=== PATIENT | male | born 1995 | race African-American/Black ===

== ENCOUNTER 2021-07-13 17:15 | Inpatient (IN) ==
[2021-07-13 17:23] VITALS: BMI 25.1
[2021-07-13] MEDS ORDERED: NS 1000 ML 1,000 ML IV ONE (17:40)
[2021-07-13] MEDS ORDERED: TORADOL 30 MG VIAL IVP ONE (17:47)
[2021-07-13] MEDS ORDERED: NS 1000 ML 1,000 ML ONE (17:49)
--- NOTE | 2021-07-13 17:50 | DR.EXTPAIN ---
HPI Time seen Time Seen by Provider: 07/13/21 17:31 PCP Primary Care Physician: None HPI Comment HPI Comment: Sudden onset of pain in the lt knee today after he left er for what sounds like gastroenteritis; unable to place weight on it and mom says he's had to have help getting around today; he's been eating very little due to n/v which is why he went [place] [facility] [place] here last night; no fever, chills, penile discharge or pain; wbc 31 initially then 28 upon dc; ua with blood and leukocytes and ct abd with non-obstructing stone; had similar episode in the past d/t what sounds like septic knee unable to keep meds which were given to him earlier down due to n/v Complaint/Symptoms Chief Complaint:: Pt states " the circulation in my leg got cut off and I need an antibiotic mimi" Pt was seen last night for n/v and states he has still been vomiting. He states he is vomiting " because of the circulation in my leg." He reports he has had the same problem with his leg in the past because he had chlamydia. COVID-19 Coronavirus risk:travel/contact w/high risk person: No Has patient experienced Coronavirus symptoms: No Source History Provided: Patient Mode of arrival Mode of Arrival: Ambulatory Timing Onset of Chief Complaint: 07/13/21 PMH PMH Past Medical History: No Past Surgical History: Yes Surgical History: No History Past Surgical History Comment: adenoidectomy Family History History of Family Medical Conditions: Yes Family Medical History: Hypertension Family Medical History Comment: cancer Social History Does patient currently use any type of tobacco product: No Have you used tobacco products in the last 12 months: No Type of Tobacco Use: None Does any household member use tobacco: No Alcohol Use: None Do you use any recreational Drugs:: No Lives With: Family Lives Where: Home Travel Risk Coronavirus risk:travel/contact w/high risk person: No Has patient experienced Coronavirus symptoms: No Infectious screening In the last 2 months have you had wt loss of >10#?: NO Have you had fever, night sweats or hemotysis?: No Have you traveled outside the country in the last 6 months?: No Isolation: Standard ROS Review of Systems Eyes: No Symptoms Reported ENTM: No Symptoms Reported Respiratoy: No Symptoms Reported Cardiovascular: No Symptoms Reported Genitourinary: No Symptoms Reported Neurological: No Symptoms Reported Integumentary: No Symptoms Reported Hematologic/Lymphatic: No Symptoms Reported Endocrine: No Symptoms Reported Psychiatric: No Symptoms Reported PE Vital Signs Vitals: Temperature 97.4 F Pulse Rate [Apical] 75 Pulse Rate 84 Respiratory Rate 18 Blood Pressure [Left Arm] 124/82 Blood Pressure 113/70 O2 Sat by Pulse Oximetry 100 General Limitations: No Limitations General Appearance: Alert and In No Apparent Distress Head Head Exam: Normal Inspection Eyes Eye exam: Normal Appearance ENT ENT Exam: Normal Exam Neck Neck Exam: Normal Inspection Chest Chest Inspection: Normal Inspection Respiratory Respiratory Exam: Normal Lung Sounds Bilat Cardiovascular Cardiovascular Exam: Regular Rate and Normal Rhythm Abdominal Exam Abdominal Exam: Normal Inspection, Normal Bowel Sounds and Soft Lower Extremities Knee Exam: Swelling, Erythema and Effusion (warm, very tender lt knee with minimal effusion medially) Lower Leg Exam: Tenderness (very tender warm calderon without redness, decreased rom) Back Back Exam: Normal Inspection Neurological Neurological Exam: Alert, Oriented X3 and CN II-XII Intact Psychiatric Psychiatric Exam: Normal Affect and Normal Mood COURSE Treatment Treatment: unable to keep po down; af with minimal effusion at best; admit with IV abx for empiric tx of septic jt, hydration Reevaluation 1st: Worsened (actively vomiting) Consultation Call Returned: 19:33 (d/w Dr Sue who accepts admission) ROR Labs Reviewed Laboratory Results Reviewed?: Yes Result Diagrams: 07/13/21 17:56 07/13/21 17:56 Laboratory: WBC 27.1 X10^3/uL (3.6-10.0) H 07/13/21 17:56 RBC 4.74 X10^6/uL (4.7-6.0) 07/13/21 17:56 Hgb 14.3 g/dL (13.5-18.0) 07/13/21 17:56 Hct 42.1 % (42.0-54.0) 07/13/21 17:56 MCV 88.9 fL (80.0-100.0) 07/13/21 17:56 MCH 30.2 pg (27.0-34.0) 07/13/21 17:56 MCHC 33.9 g/dL (33.0-35.0) 07/13/21 17:56 RDW 13.4 % (11.6-16.5) 07/13/21 17:56 Plt Count 143 X10^3/uL (150.0-450.0) L 07/13/21 17:56 Plt Count Comment Decreased (ADEQUATE) 07/13/21 17:56 MPV 8.4 fL (7.4-11.0) 07/13/21 17:56 Neut % (Auto) 87.4 % (42.0-75.0) H 07/13/21 17:56 Lymph % (Auto) 4.7 % (21.0-51.0) L 07/13/21 17:56 Maury % (Auto) 7.7 % (0.0-13.0) 07/13/21 17:56 Eos % (Auto) 0.1 % (0.9-2.9) L 07/13/21 17:56 Baso % (Auto) 0.1 % (0.2-1.0) L 07/13/21 17:56 Neut # (Auto) 23.7 x10^3/uL (2.2-4.8) H 07/13/21 17:56 Lymph # (Auto) 1.3 X10^3/uL (1.3-2.9) 07/13/21 17:56 Maury # (Auto) 2.1 x10^3/uL (0.3-0.8) H 07/13/21 17:56 Eos # (Auto) 0.0 x10^3/uL (0.0-0.2) 07/13/21 17:56 Baso # (Auto) 0.0 X10^3/uL (0.0-0.1) 07/13/21 17:56 Absolute Nucleated RBC 0.1 /100WBC 07/13/21 17:56 Total Counted 100 07/13/21 17:56 Neutrophils % (Manual) 75 % (39-76) 07/13/21 17:56 Band Neutrophils % 4 % (0-10) 07/13/21 17:56 Lymphocytes % (Manual) 9 % (13-43) L 07/13/21 17:56 Monocytes % (Manual) 12 % (4-9) H 07/13/21 17:56 Atypical Lymphocytes Rare 07/13/21 17:56 Plt Morphology Comment Normal (NORMAL) 07/13/21 17:56 RBC Morphology Normal (NORMAL) 07/13/21 17:56 ESR 41 MM/HOUR (0-15) H 07/13/21 17:56 Sodium 140 mmol/L (136-145) 07/13/21 17:56 Corrected Sodium TNP 07/13/21 17:56 Potassium 3.5 mmol/L (3.5-5.1) 07/13/21 17:56 Chloride 104 mmol/L (98-107) 07/13/21 17:56 Carbon Dioxide 28.9 mmol/L (21-32) 07/13/21 17:56 BUN 12 mg/dL (7-18) 07/13/21 17:56 Creatinine 0.89 mg/dL (0.70-1.30) 07/13/21 17:56 Est GFR (MDRD) Af Amer > 60 (>60) 07/13/21 17:56 Est GFR (MDRD) Non-Af > 60 (>60) 07/13/21 17:56 Glucose 88 mg/dL (65-99) 07/13/21 17:56 Calcium 8.7 mg/dL (8.5-10.1) 07/13/21 17:56 Corrected Calcium 9.5 mg/dL (8.5-10.1) 07/13/21 17:56 Total Bilirubin 0.40 mg/dL (0.2-1.0) 07/13/21 17:56 AST 22 Units/L (15-37) 07/13/21 17:56 ALT 22 Units/L (12-78) 07/13/21 17:56 Alkaline Phosphatase 77 Units/L (46-116) 07/13/21 17:56 Total Protein 7.1 g/dL (6.4-8.2) 07/13/21 17:56 Albumin 3.0 g/dL (3.4-5.0) L 07/13/21 17:56 Globulin 4.1 g/dL (2.5-4.5) 07/13/21 17:56 Albumin/Globulin Ratio 0.7 Ratio (1.1-2.1) L 07/13/21 17:56 SARS-CoV-2 (PCR) Negative (NEGATIVE) 07/13/21 19:50 Influenza Type A (PCR) Negative (NEGATIVE) 10/16/21 19:50 Influenza Type B (PCR) Negative (NEGATIVE) 07/13/21 19:50 RSV (PCR) Negative (NEGATIVE) 07/13/21 19:50 XRAY XRAY Interpreted by: Radiologist X-ray Results: lt knee xr: Small nonspecific effusion. No significant osseous abnormality. ct abd/pelvis: Right nephrolithiasis, nonobstructing. No acute abdominal or pelvic pathology. Opioid Opioid Risk Tool Age (Tommie box if 16-45): No History of Preadolescent Sexual Abuse: No Total: 0 Total Score Risk Category: Low Risk Copyright: Juan ARIZMENDI predicting aberrant behaviors Diagnosis Discharge Problem: Nausea and vomiting in adult patient, Gastroenteritis, Acute pain of left knee Septic arthritis of knee, left Qualifiers: Septic arthritis organism: due to unspecified organism Qualified Code(s): M00.9 - Pyogenic arthritis, unspecified Instructions Forms: Precautions for COVID19 [facility] Social Distancing
[2021-07-13] MEDS ORDERED: TORADOL 30 MG VIAL ONE (18:09)
[2021-07-13 18:21] LABS: BASOPHILS % (AUTO) 0.1 % (0.2-1.0); EOSINOPHILS % (AUTO) 0.1 % (0.9-2.9); HEMATOCRIT 42.1 % (42.0-54.0); HEMOGLOBIN 14.3 g/dL (13.5-18.0); LYMPHOCYTES # (AUTO) 1.3 X10^3/uL (1.3-2.9); LYMPHOCYTES % (AUTO) 4.7 % (21.0-51.0); MEAN CORPUSCULAR HEMOGLOBIN 30.2 pg (27.0-34.0); MEAN CORPUSCULAR HGB CONC 33.9 g/dL (33.0-35.0); MEAN CORPUSCULAR VOLUME 88.9 fL (80.0-100.0); MEAN PLATELET VOLUME 8.4 fL (7.4-11.0); MONOCYTES # (AUTO) 2.1 x10^3/uL (0.3-0.8); MONOCYTES % (AUTO) 7.7 % (0.0-13.0); NEUTROPHILS # (AUTO) 23.7 x10^3/uL (2.2-4.8); NEUTROPHILS % (AUTO) 87.4 % (42.0-75.0); PLATELET COUNT 143 X10^3/uL (150.0-450.0); RED BLOOD COUNT 4.74 X10^6/uL (4.7-6.0); RED CELL DISTRIBUTION WIDTH 13.4 % (11.6-16.5); WHITE BLOOD COUNT 27.1 X10^3/uL (3.6-10.0)
--- NOTE | 2021-07-13 18:22 | RAD ---
HISTORYSWOLLEN, RED AND PAINFUL LT KNEE, H/O SEPTIC ARTHRITIS Relevant Clinical InformationSTUDYLeft knee, two viewsCOMPARISONNoneFINDINGSThere is small joint effusion. Joint spaces are maintained. No acute cortical disruption or osteolysis identified.IMPRESSIONSmall nonspecific effusion. No significant osseous abnormality.Electronically signed by: ADRIAN NUÑEZ (Jul 13, 2021 18:20:24)
[2021-07-13 18:24] LABS: ERYTHROCYTE SEDIMENTATION RATE 41 MM/HOUR (0-15)
[2021-07-13 18:33] LABS: ALANINE AMINOTRANSFERASE 22 Units/L (12-78); ALKALINE PHOSPHATASE 77 Units/L (46-116); ASPARTATE AMINO TRANSFERASE 22 Units/L (15-37); BLOOD UREA NITROGEN 12 mg/dL (7-18); CALCIUM 8.7 mg/dL (8.5-10.1); CARBON DIOXIDE 28.9 mmol/L (21-32); CHLORIDE 104 mmol/L (98-107); COR CA(FOR HYPOALB) 9.5 mg/dL (8.5-10.1); CREATININE 0.89 mg/dL (0.70-1.30); SODIUM 140 mmol/L (136-145); TOTAL PROTEIN 7.1 g/dL (6.4-8.2); eGFR NON BLACK RACES > 60 (>60)
[2021-07-13] MEDS ORDERED: ZOFRAN INJ 4 MG VIAL IVP ONE (18:51)
[2021-07-13] MEDS ORDERED: MORPHINE SULFATE INJ 2 MG INJ IVP ONE (18:51)
[2021-07-13 18:53] LABS: BAND NEUTROPHILS % 4 % (0-10)
[2021-07-13 18:54] LABS: PLATELET MORPHOLOGY COMMENT NORMAL (NORMAL)
[2021-07-13] MEDS ORDERED: ROCEPHIN VIAL 1 GRAM 1 G in NS 100 ML IV + SPIKE MINIBAG* 100 ML IV ONE (18:58)
[2021-07-13] MEDS ORDERED: MORPHINE SULFATE INJ 2 MG INJ ONE (19:09)
[2021-07-13] MEDS ORDERED: NS 100 ML IV + SPIKE MINIBAG* 100 ML IV ONE (19:09)
[2021-07-13] MEDS ORDERED: ZOFRAN INJ 4 MG VIAL ONE (19:09)
[2021-07-13] MEDS ORDERED: ROCEPHIN VIAL 1 GRAM ONE (19:09)
[2021-07-13] MEDS ORDERED: ZITHROMAX INJ 500 MG VIAL 500 MG in NS 250 ML IV 250 ML IV SCH (19:27)
[2021-07-13] MEDS ORDERED: ZITHROMAX INJ 500 MG VIAL IV ONE (19:33)
[2021-07-13] MEDS ORDERED: NS 250 ML IV 250 ML IV ONE (19:33)
[2021-07-13] MEDS ORDERED: MORPHINE SULFATE INJ 2 MG INJ IVP PRN (20:35)
--- NOTE | 2021-07-13 20:54 | VAS ---
HISTORYLEFT KNEE PAIN R/O DVTSTUDYLOWER EXT VENOUS, UNILATERALCOMPARISONNo relevant prior studies available.TECHNIQUEGrayscale and color Doppler images of the left lower extremity.FINDINGSCommon femoral, femoral, popliteal and posterior tibial veins demonstrate normal compressibility, color Doppler flow, waveforms and augmentation with no filling defects.Soft tissues: UnremarkableIMPRESSIONNo evidence of deep venous thrombus.Electronically signed by: Brandan Salcido (Jul 13, 2021 20:52:11)
[2021-07-13] MEDS: NS 1000 ML 1,000 ML IV SCH (21:23)
[2021-07-13] MEDS ORDERED: TYLENOL 325 MG TAB PO PRN (21:24)
[2021-07-14] MEDS: AMBIEN PO PRN ×2 (00:34→20:13)
[2021-07-14] MEDS: ZOFRAN INJ 4 MG VIAL IVP PRN (03:21)
[2021-07-14] MEDS: NS 1000 ML 1,000 ML IV SCH ×4 (05:20→22:06)
[2021-07-14 06:21] LABS: ALANINE AMINOTRANSFERASE 44 Units/L (12-78); ALBUMIN 2.6 g/dL (3.4-5.0); ALKALINE PHOSPHATASE 91 Units/L (46-116); ASPARTATE AMINO TRANSFERASE 41 Units/L (15-37); BLOOD UREA NITROGEN 11 mg/dL (7-18); CALCIUM 8.5 mg/dL (8.5-10.1); CARBON DIOXIDE 26.6 mmol/L (21-32); CHLORIDE 106 mmol/L (98-107); COR CA(FOR HYPOALB) 9.6 mg/dL (8.5-10.1); SODIUM 142 mmol/L (136-145); TOTAL PROTEIN 6.5 g/dL (6.4-8.2); eGFR NON BLACK RACES > 60 (>60)
[2021-07-14 06:38] LABS: BASOPHILS % (AUTO) 0.3 % (0.2-1.0); EOSINOPHILS # (AUTO) 0.1 x10^3/uL (0.0-0.2); EOSINOPHILS % (AUTO) 0.4 % (0.9-2.9); HEMATOCRIT 40.3 % (42.0-54.0); HEMOGLOBIN 13.6 g/dL (13.5-18.0); LYMPHOCYTES # (AUTO) 2.1 X10^3/uL (1.3-2.9); LYMPHOCYTES % (AUTO) 11.2 % (21.0-51.0); MEAN CORPUSCULAR HEMOGLOBIN 29.9 pg (27.0-34.0); MEAN CORPUSCULAR HGB CONC 33.7 g/dL (33.0-35.0); MEAN CORPUSCULAR VOLUME 88.7 fL (80.0-100.0); MEAN PLATELET VOLUME 8.5 fL (7.4-11.0); MONOCYTES # (AUTO) 1.9 x10^3/uL (0.3-0.8); NEUTROPHILS # (AUTO) 14.4 x10^3/uL (2.2-4.8); NEUTROPHILS % (AUTO) 78.1 % (42.0-75.0); PLATELET COUNT 145 X10^3/uL (150.0-450.0); RED BLOOD COUNT 4.55 X10^6/uL (4.7-6.0); RED CELL DISTRIBUTION WIDTH 13.3 % (11.6-16.5); WHITE BLOOD COUNT 18.5 X10^3/uL (3.6-10.0)
[2021-07-14] MEDS ORDERED: POTASSIUM CHLORIDE LIQ 20 MEQ UDC PO PRN (06:50)
[2021-07-14] MEDS ORDERED: POTASSIUM CHL 40 MEQ/NS 0.45% 500 ML IV PRN (06:50)
[2021-07-14] MEDS ORDERED: POTASSIUM CHL 60 MEQ/NS 0.45% 500 ML IV PRN (06:50)
[2021-07-14] MEDS ORDERED: K-RIDER 10 MEQ/NS 100 ML 10 MEQ/100 ML BAG IV PRN (06:50)
[2021-07-14] MEDS ORDERED: KLOR-CON PO PRN (06:50)
[2021-07-14] MEDS ORDERED: MICRO K EXTEN CAP 10 MEQ PO PRN (06:50)
[2021-07-14 07:20] LABS: BAND NEUTROPHILS % 7 % (0-10); PLATELET MORPHOLOGY COMMENT NORMAL (NORMAL)
[2021-07-14] MEDS ORDERED: MORPHINE SULFATE INJ 2 MG INJ IVP PRN (08:00)
[2021-07-14] MEDS ORDERED: PHENERGAN INJ 25 MG IM PRN (08:00)
[2021-07-14] MEDS ORDERED: ROCEPHIN VIAL 1 GRAM 1 G in NS 100 ML IV + SPIKE MINIBAG* 100 ML IV SCH (09:00)
[2021-07-14] MEDS: K-DUR TAB 20 MEQ PO PRN (09:17)
[2021-07-14] MEDS: ZITHROMAX INJ 500 MG VIAL 500 MG in NS 250 ML IV 250 ML IV SCH (10:49)
--- NOTE | 2021-07-14 11:00 | DR.H&P ---
H&P - History & Physical for Day of: H&P Date: 07/13/21 - Chief Complaint Chief Complaint: severe left knee pain, recent N/V, dehdyration - History of Present Illness History of Present Illness: Pt is 25 M, ER admission with co sudden onset of pain in the lt knee today after he left er for what sounds like gastroenteritis; unable to place weight on it and mom says he's had to have help getting around today; he's been eating very little due to n/v which is why he went to [place] [facility] [place] here last night; no fever, chills, penile discharge or pain; wbc 31 initially then 28 upon dc; ua with blood and leukocytes and ct abd with non-obst ructing stone; had similar episode in the past d/t what sounds like septic knee. Pt denies any PMH of DM, CAD,HTN. unable to keep meds which were given to him earlier down due to n/v - Past Medical History Past Medical History: denies: Coronary Artery Disease, Diabetes, Hypertension - Past Surgical History Surgical History: No History - Family History Family Medical History: Diabetes Mellitus, Cancer - Social History Does patient currently use any type of tobacco product: No Have you used tobacco products in the last 12 months: No Type of Tobacco Use: None Does any household member use tobacco: No Alcohol Use: None Drug Use: Prescription Drugs - Medications Home Medications: No Known Drug Allergies Allergy (Verified 07/12/21 20:48) CONTINUE taking the following medications metoclopramide HCl [Reglan] 10 mg PO Q6H PRN 07/13/21 [History] pantoprazole [Protonix] 40 mg PO QAM 07/13/21 [History] - Review of Systems Constitutional: Weakness Eyes: No Symptoms Reported ENT: No Symptoms Reported Respiratory: No Symptoms Reported Cardiovascular: No Symptoms Reported Gastrointestinal: Nausea, Vomiting Genitourinary: No Symptoms Reported Musculoskeletal: Leg Pain Skin: No Symptoms Reported Neurological: No Symptoms Reported - Physical Exam Vital Signs: Temperature 98.3 F Pulse Rate [Apical] 73 Pulse Rate 84 Respiratory Rate 18 Blood Pressure [Left Arm] 149/69 Blood Pressure 113/70 O2 Sat by Pulse Oximetry 98 Oriented: Normal Eyes: Normal Ear: Normal Nose: Normal Throat: Normal Respiratory: RLL Diminished, LLL Diminished Cardiovascular: Normal : Normal Auscultation: Bowel Sounds: Increased Tenderness: Epigastric, Mild Skin: Normal Musculoskeletal: Left, Knee, Swelling, Tender Psychiatric: Anxiety Affect: Anxious Speech Pattern: Clear, Appropriate - Assessment/Plan (1) Septic arthritis of knee, left Qualifiers: Septic arthritis organism: due to unspecified organism Qualified Code(s): M00.9 - Pyogenic arthritis, unspecified Status: Acute Plan: admit, blood cultures on admission. knee xray in er, IV hydration. strict I&Os, pain control. IV ATBX, verify home medications (2) Gastroenteritis Status: Acute - Allergies Allergies/Adverse Reactions: Allergies Allergy/AdvReac Type Severity Reaction Status Date / Time No Known Drug Allergies Allergy Verified 07/12/21 20:48
[2021-07-14 11:12] LABS: URIC ACID 3.8 mg/dL (3.5-7.2)
[2021-07-14] MEDS: TORADOL 15 MG VIAL IVP PRN (15:01)
[2021-07-14] MEDS ORDERED: VANCOMYCIN IV *PREMIX 1 G/200 ML BAG 1 G/200 ML PIGGYBACK IV ONE (15:14)
[2021-07-14] MEDS: VANCOMYCIN IV *PREMIX 1 G/200 ML BAG 1 G/200 ML PIGGYBACK IV SCH ×3 (15:24→23:33)
[2021-07-14] MEDS ORDERED: MILK OF MAGNESIA ONE (19:51)
[2021-07-14] MEDS: NORCO 7.5/325 MG TAB PO PRN (20:12)
[2021-07-14] MEDS: MILK OF MAGNESIA PO SCH (20:13)
[2021-07-15] MEDS: TORADOL 15 MG VIAL IVP PRN ×2 (02:45→10:14)
[2021-07-15] MEDS: NS 1000 ML 1,000 ML IV SCH ×4 (05:35→22:54)
[2021-07-15 06:16] LABS: BASOPHILS % (AUTO) 0.4 % (0.2-1.0); EOSINOPHILS # (AUTO) 0.1 x10^3/uL (0.0-0.2); EOSINOPHILS % (AUTO) 1.1 % (0.9-2.9); HEMATOCRIT 38.7 % (42.0-54.0); HEMOGLOBIN 13.2 g/dL (13.5-18.0); LYMPHOCYTES # (AUTO) 2.4 X10^3/uL (1.3-2.9); LYMPHOCYTES % (AUTO) 20.3 % (21.0-51.0); MEAN CORPUSCULAR HEMOGLOBIN 30.5 pg (27.0-34.0); MEAN CORPUSCULAR HGB CONC 34.2 g/dL (33.0-35.0); MEAN CORPUSCULAR VOLUME 89.2 fL (80.0-100.0); MEAN PLATELET VOLUME 8.3 fL (7.4-11.0); MONOCYTES # (AUTO) 2.5 x10^3/uL (0.3-0.8); MONOCYTES % (AUTO) 20.7 % (0.0-13.0); NEUTROPHILS # (AUTO) 6.9 x10^3/uL (2.2-4.8); NEUTROPHILS % (AUTO) 57.5 % (42.0-75.0); PLATELET COUNT 174 X10^3/uL (150.0-450.0); RED BLOOD COUNT 4.34 X10^6/uL (4.7-6.0); RED CELL DISTRIBUTION WIDTH 13.6 % (11.6-16.5); WHITE BLOOD COUNT 12.1 X10^3/uL (3.6-10.0)
[2021-07-15 06:32] LABS: ALANINE AMINOTRANSFERASE 113 Units/L (12-78); ALBUMIN 2.5 g/dL (3.4-5.0); ALKALINE PHOSPHATASE 106 Units/L (46-116); ASPARTATE AMINO TRANSFERASE 85 Units/L (15-37); BLOOD UREA NITROGEN 9 mg/dL (7-18); CALCIUM 8.7 mg/dL (8.5-10.1); CARBON DIOXIDE 25.2 mmol/L (21-32); CHLORIDE 108 mmol/L (98-107); COR CA(FOR HYPOALB) 9.9 mg/dL (8.5-10.1); CREATININE 0.84 mg/dL (0.70-1.30); SODIUM 144 mmol/L (136-145); TOTAL PROTEIN 6.3 g/dL (6.4-8.2); eGFR NON BLACK RACES > 60 (>60)
[2021-07-15 06:36] LABS: ERYTHROCYTE SEDIMENTATION RATE 52 MM/HOUR (0-15)
[2021-07-15 07:02] LABS: BAND NEUTROPHILS % 3 % (0-10); PLATELET MORPHOLOGY COMMENT NORMAL (NORMAL)
[2021-07-15] MEDS: VANCOMYCIN IV *PREMIX 1 G/200 ML BAG 1 G/200 ML PIGGYBACK IV SCH ×3 (07:52→22:52)
[2021-07-15] MEDS: ZITHROMAX INJ 500 MG VIAL 500 MG in NS 250 ML IV 250 ML IV SCH (09:27)
[2021-07-15] MEDS ORDERED: XYLOCAINE 1 % (PLAIN) ONE (09:43)
[2021-07-15] MEDS: PHARMACY COMMENT IV SCH ×2 (14:34→14:35)
[2021-07-15] MEDS: NORCO 7.5/325 MG TAB PO PRN ×2 (14:35→20:17)
[2021-07-15 15:04] LABS: CREATININE 0.84 mg/dL (0.70-1.30); VANCOMYCIN,TROUGH 11.6 ug/mL (15-20)
[2021-07-15] MEDS ORDERED: LR 1000 ML IV 1,000 ML IV ONE (15:21)
[2021-07-15] MEDS ORDERED: FENTANYL VIAL INJ 100 mcg ONE (15:43)
[2021-07-15] MEDS ORDERED: VERSED ONE (15:45)
[2021-07-15] MEDS ORDERED: DIPRIVAN VIAL ONE (15:45)
[2021-07-15] MEDS ORDERED: ZOFRAN INJ 4 MG VIAL ONE (15:45)
[2021-07-15] MEDS ORDERED: SUPRANE ONE (15:45)
[2021-07-15] MEDS ORDERED: ROBINUL ONE (15:45)
[2021-07-15] MEDS ORDERED: BARHEMSYS INJ IVP PRN (16:44)
[2021-07-15] MEDS ORDERED: DILAUDID INJ IVP PRN (16:44)
[2021-07-15] MEDS ORDERED: BENADRYL INJ 50 MG VIAL IVP PRN (16:44)
[2021-07-15] MEDS ORDERED: REGLAN INJ 10 MG VIAL IVP PRN (16:44)
[2021-07-15] MEDS ORDERED: ZOFRAN INJ 4 MG VIAL IVP PRN (16:44)
[2021-07-15] MEDS ORDERED: PHENERGAN INJ 25 MG IM PRN (16:44)
--- NOTE | 2021-07-15 17:34 | DR.CONSULT ---
CONSULT Consultation for Day of: Date: 07/15/21 Allergies Allergies Allergy/AdvReac Type Severity Reaction Status Date / Time No Known Drug Allergies Allergy Verified 07/12/21 20:48 Past Medical History Past Medical History: Past Surgical History Surgical History: No History Family History Family Medical History: Diabetes Mellitus and Cancer Social History Does patient currently use any type of tobacco product: No Have you used tobacco products in the last 12 months: No Type of Tobacco Use: None Does any household member use tobacco: No Alcohol Use: None Drug Use: Prescription Drugs Medications Home Medications: No Known Drug Allergies Allergy (Verified 07/12/21 20:48) CONTINUE taking the following medications metoclopramide HCl [Reglan] 10 mg PO Q6H PRN 07/13/21 [History] pantoprazole [Protonix] 40 mg PO QAM 07/13/21 [History] Physical Exam Vital Signs: Temperature 97.0 F Pulse Rate [Apical] 74 Pulse Rate 75 Respiratory Rate 18 Blood Pressure [Left Arm] 128/73 Blood Pressure 130/70 O2 Sat by Pulse Oximetry 95 Left knee is swollen, erythematous, warm to touch and painful to move. Palpable effusion is present Exam is guarded due to pain. Sensation is intact. The patient is able to wiggle toes and resist dorsiflexion and plantar flexion bilaterally. Plan (1) Septic arthritis of knee, left: Status: Acute Qualifiers: Septic arthritis organism: due to unspecified organism Qualified Code(s): M00.9 - Pyogenic arthritis, unspecified Narrative Support Text: Patient reports that he has had one prior episode of left knee swelling but nothing as bad as presently. He states that there was no traumatic injury that caused his left knee pain. Per the chart, he was previously being treated for gastroenteritis. His mother was present with for the procedure. We discussed various treatment options including not aspirating the knee. We discussed the risk of not treating a possible septic arthritis. All questions were answered and patient wished to pursue left knee aspiration. After consent was obtained, the left knee was aspirated using an 18g 3.5 in needle under ultrasound guidance. The patient tolerated the procedure well. 58ml of cloudy purulent material was removed off the left knee. There were no immediate post-procedural complications. The patient is to have a washout of the left knee pending laboratory results and Dr. Camacho. Dr. Camacho to perform. (2) Gastroenteritis: Status: Acute
[2021-07-15] MEDS ORDERED: K-DUR TAB 20 MEQ PO PRN (19:04)
[2021-07-15] MEDS ORDERED: KLOR-CON PO PRN (19:04)
[2021-07-15] MEDS ORDERED: K-RIDER 10 MEQ/NS 100 ML 10 MEQ/100 ML BAG IV PRN (19:04)
[2021-07-15] MEDS ORDERED: POTASSIUM CHLORIDE LIQ 20 MEQ UDC PO PRN (19:04)
[2021-07-15] MEDS: ZOFRAN INJ 4 MG VIAL IVP PRN (20:17)
[2021-07-15] MEDS: K-DUR TAB 20 MEQ PO PRN (20:18)
[2021-07-15] MEDS: AMBIEN PO PRN (20:18)
[2021-07-15] MEDS: MILK OF MAGNESIA PO SCH (20:19)
[2021-07-16] MEDS: NS 1000 ML 1,000 ML IV SCH ×4 (00:56→21:38)
[2021-07-16] MEDS: NORCO 7.5/325 MG TAB PO PRN ×3 (02:21→20:33)
[2021-07-16 05:10] LABS: BASOPHILS # (AUTO) 0.1 X10^3/uL (0.0-0.1); BASOPHILS % (AUTO) 0.8 % (0.2-1.0); EOSINOPHILS # (AUTO) 0.2 x10^3/uL (0.0-0.2); EOSINOPHILS % (AUTO) 1.8 % (0.9-2.9); HEMATOCRIT 37.7 % (42.0-54.0); HEMOGLOBIN 12.9 g/dL (13.5-18.0); LYMPHOCYTES # (AUTO) 2.4 X10^3/uL (1.3-2.9); MEAN CORPUSCULAR HEMOGLOBIN 30.1 pg (27.0-34.0); MEAN CORPUSCULAR HGB CONC 34.2 g/dL (33.0-35.0); MEAN CORPUSCULAR VOLUME 88.2 fL (80.0-100.0); MEAN PLATELET VOLUME 8.1 fL (7.4-11.0); MONOCYTES # (AUTO) 2.7 x10^3/uL (0.3-0.8); MONOCYTES % (AUTO) 24.2 % (0.0-13.0); NEUTROPHILS # (AUTO) 5.7 x10^3/uL (2.2-4.8); NEUTROPHILS % (AUTO) 51.2 % (42.0-75.0); PLATELET COUNT 195 X10^3/uL (150.0-450.0); RED BLOOD COUNT 4.28 X10^6/uL (4.7-6.0); RED CELL DISTRIBUTION WIDTH 13.3 % (11.6-16.5); WHITE BLOOD COUNT 11.1 X10^3/uL (3.6-10.0)
[2021-07-16 05:34] LABS: ALANINE AMINOTRANSFERASE 79 Units/L (12-78); ALBUMIN 2.5 g/dL (3.4-5.0); ALKALINE PHOSPHATASE 85 Units/L (46-116); ASPARTATE AMINO TRANSFERASE 31 Units/L (15-37); BLOOD UREA NITROGEN 8 mg/dL (7-18); CALCIUM 8.4 mg/dL (8.5-10.1); CARBON DIOXIDE 25.7 mmol/L (21-32); CHLORIDE 105 mmol/L (98-107); COR CA(FOR HYPOALB) 9.6 mg/dL (8.5-10.1); CREATININE 0.79 mg/dL (0.70-1.30); MAGNESIUM 1.6 mg/dL (1.7-2.9); SODIUM 139 mmol/L (136-145); TOTAL PROTEIN 6.3 g/dL (6.4-8.2); eGFR NON BLACK RACES > 60 (>60)
[2021-07-16 05:38] LABS: PLATELET MORPHOLOGY COMMENT NORMAL (NORMAL)
[2021-07-16] MEDS: VANCOMYCIN IV *PREMIX 1 G/200 ML BAG 1 G/200 ML PIGGYBACK IV SCH ×3 (05:39→21:30)
[2021-07-16] MEDS: K-DUR TAB 20 MEQ PO PRN ×2 (06:16→16:16)
[2021-07-16] MEDS: MAGNESIUM SULFATE 1 GRAM/100 mL PREMIX 1 G/100 ML BAG IV PRN ×2 (07:05→08:18)
[2021-07-16] MEDS ORDERED: MORPHINE SULFATE INJ 4 MG IVP ONE (09:22)
[2021-07-16] MEDS: ZITHROMAX INJ 500 MG VIAL 500 MG in NS 250 ML IV 250 ML IV SCH (10:20)
[2021-07-16] MEDS ORDERED: REGLAN TAB 10 MG PO PRN (13:04)
[2021-07-16] MEDS ORDERED: ZOFRAN TAB 4 MG PO PRN (13:04)
[2021-07-16] MEDS: MORPHINE SULFATE INJ 2 MG INJ IVP PRN ×2 (16:16→18:20)
--- NOTE | 2021-07-16 20:17 | PCM.PROG ---
Progress Note - Progress Note for Day of Date of Exam: 07/15/21 - Subjective Subjective: PATIENT IS A 25 YEAR OLD AAM WHO WAS ADMITTED DUE TO GASTROENTERITIS AND SEPTIC KNEE (LEFT). PATIENT IS BEING FOLLOWING BY ORTHO WHO PLANS AN I&D TODAY. NO OTHER CONCERNS AT PRESENT. PATIENT CONTINUES TO REPORT PAIN TO KNEE. - Past Medical Family Social History Past Med/Fam/Surg Hx: No changes since H&P Allergies: Allergies No Known Drug Allergies Allergy (Verified 07/12/21 20:48) - Review of Systems ROS: No change since H&P - Vital Signs and I&O's Vital Signs: Temperature 97.8 F Pulse Rate [Apical] 79 Pulse Rate 75 Respiratory Rate 18 Blood Pressure [Left Arm] 133/81 Blood Pressure 130/70 O2 Sat by Pulse Oximetry 99 Intake and Output: Intake & Output 07/13/21 07/14/21 07/15/21 07/16/21 23:59 23:59 23:59 23:59 Intake Total 595 / 595 5954 / 5954 9216 / 9216 3471 / 3471 Output Total 400 / 400 6010 / 6010 500 / 500 Balance 595 / 595 5554 / 5554 3206 / 3206 2971 / 2971 - Physical Exam Oriented: Normal Eyes: Normal Ear: Normal Nose: Normal Throat: Normal Respiratory: Normal Cardiovascular: Normal : Normal Auscultation: Bowel Sounds: Normal Tenderness: Normal Skin: Normal Musculoskeletal: Left, Knee, Swelling, Tender Psychiatric: Normal Mood Description: Calm Affect: Normal Speech Pattern: Clear - Laboratory and Diagnostics Result Diagrams: 07/16/21 04:40 07/16/21 15:07 Labs: 07/15/21 16:10 Knee - Left Wound Gram Stain - Final 07/15/21 16:10 Knee - Left Wound Culture - Preliminary 07/15/21 09:58 Knee - Left - Preliminary 07/15/21 09:58 Knee - Left Gram Stain - Final 07/13/21 18:10 Blood Blood Culture - Preliminary 07/13/21 17:56 Blood Blood Culture - Preliminary Laboratory WBC 11.1 X10^3/uL (3.6-10.0) H 07/16/21 04:40 RBC 4.28 X10^6/uL (4.7-6.0) L 07/16/21 04:40 Hgb 12.9 g/dL (13.5-18.0) L 07/16/21 04:40 Hct 37.7 % (42.0-54.0) L 07/16/21 04:40 MCV 88.2 fL (80.0-100.0) 07/16/21 04:40 MCH 30.1 pg (27.0-34.0) 07/16/21 04:40 MCHC 34.2 g/dL (33.0-35.0) 07/16/21 04:40 RDW 13.3 % (11.6-16.5) 07/16/21 04:40 Plt Count 195 X10^3/uL (150.0-450.0) 07/16/21 04:40 Plt Count Comment Adequate (ADEQUATE) 07/16/21 04:40 MPV 8.1 fL (7.4-11.0) 07/16/21 04:40 Neut % (Auto) 51.2 % (42.0-75.0) 07/16/21 04:40 Lymph % (Auto) 22.0 % (21.0-51.0) 07/16/21 04:40 Sac % (Auto) 24.2 % (0.0-13.0) H 07/16/21 04:40 Eos % (Auto) 1.8 % (0.9-2.9) 07/16/21 04:40 Baso % (Auto) 0.8 % (0.2-1.0) 07/16/21 04:40 Neut # (Auto) 5.7 x10^3/uL (2.2-4.8) H 07/16/21 04:40 Lymph # (Auto) 2.4 X10^3/uL (1.3-2.9) 07/16/21 04:40 Sac # (Auto) 2.7 x10^3/uL (0.3-0.8) H 07/16/21 04:40 Eos # (Auto) 0.2 x10^3/uL (0.0-0.2) 07/16/21 04:40 Baso # (Auto) 0.1 X10^3/uL (0.0-0.1) 07/16/21 04:40 Absolute Nucleated RBC 0.0 /100WBC 07/16/21 04:40 Total Counted 100 07/16/21 04:40 Neutrophils % (Manual) 49 % (39-76) 07/16/21 04:40 Band Neutrophils % 3 % (0-10) 07/15/21 04:38 Lymphocytes % (Manual) 29 % (13-43) 07/16/21 04:40 Monocytes % (Manual) 21 % (4-9) H 07/16/21 04:40 Eosinophils % (Manual) 1 % (0-6) 07/16/21 04:40 Atypical Lymphocytes Few 07/15/21 04:38 Plt Morphology Comment Normal (NORMAL) 07/16/21 04:40 RBC Morphology Normal (NORMAL) 07/16/21 04:40 ESR 52 MM/HOUR (0-15) H 07/15/21 04:38 Sodium 139 mmol/L (136-145) 07/16/21 04:40 Corrected Sodium TNP 07/16/21 04:40 Potassium 3.8 mmol/L (3.5-5.1) 07/16/21 15:07 Chloride 105 mmol/L (98-107) 07/16/21 04:40 Carbon Dioxide 25.7 mmol/L (21-32) 07/16/21 04:40 BUN 8 mg/dL (7-18) 07/16/21 04:40 Creatinine 0.79 mg/dL (0.70-1.30) 07/16/21 04:40 Est GFR (MDRD) Af Amer > 60 (>60) 07/16/21 04:40 Est GFR (MDRD) Non-Af > 60 (>60) 07/16/21 04:40 Glucose 106 mg/dL (65-99) H 07/16/21 04:40 Uric Acid 3.8 mg/dL (3.5-7.2) 07/14/21 05:44 Calcium 8.4 mg/dL (8.5-10.1) L 07/16/21 04:40 Corrected Calcium 9.6 mg/dL (8.5-10.1) 07/16/21 04:40 Magnesium 1.6 mg/dL (1.7-2.9) L 07/16/21 04:40 Total Bilirubin 0.40 mg/dL (0.2-1.0) 07/16/21 04:40 AST 31 Units/L (15-37) 07/16/21 04:40 ALT 79 Units/L (12-78) H 07/16/21 04:40 Alkaline Phosphatase 85 Units/L (46-116) 07/16/21 04:40 C-Reactive Protein 62.40 mg/L (0-3.0) H 07/15/21 04:38 Total Protein 6.3 g/dL (6.4-8.2) L 07/16/21 04:40 Albumin 2.5 g/dL (3.4-5.0) L 07/16/21 04:40 Globulin 3.8 g/dL (2.5-4.5) 07/16/21 04:40 Albumin/Globulin Ratio 0.7 Ratio (1.1-2.1) L 07/16/21 04:40 Fluid Source Synovial 07/15/21 09:58 Fluid Crystals None seen (None Seen) 07/15/21 09:58 Fluid Crystal Quantity None seen (None Seen) 07/15/21 09:58 Synovial WBC 97021 Cubic/mm (0-150) H 07/15/21 09:58 Vancomycin Trough 11.6 ug/mL (15-20) L 07/15/21 14:15 RPR Nonreactive (NONREACTIVE) 07/14/21 05:44 Ur C. trach DNA (PCR) Cancelled 07/14/21 05:44 SARS-CoV-2 (PCR) Negative (NEGATIVE) 07/13/21 19:50 Influenza Type A (PCR) Negative (NEGATIVE) 07/13/21 19:50 Influenza Type B (PCR) Negative (NEGATIVE) 07/13/21 19:50 U N.gonorrhoeae DNA PCR Cancelled 07/14/21 05:44 RSV (PCR) Negative (NEGATIVE) 07/13/21 19:50 - Plan (1) Acute pain of left knee Status: Acute (2) Septic arthritis of knee, left Status: Acute Qualifiers: Septic arthritis organism: due to unspecified organism Qualified Code(s): M00.9 - Pyogenic arthritis, unspecified Plan: admit, blood cultures on admission. knee xray in er, IV hydration. strict I&Os, pain control. IV ATBX, verify home medications. PENDING I&D (3) Abdominal pain Status: Acute Plan: IMPROVED, TOLERATING DIET (4) Leukocytosis Status: Acute Plan: RESOLVED
--- NOTE | 2021-07-16 20:19 | PCM.PROG ---
Progress Note - Subjective Subjective: PATIENT IS A 25 YEAR OLD AAM WHO WAS ADMITTED DUE TO GASTROENTERITIS AND SEPTIC KNEE (LEFT). PATIENT IS S/P I&D. PENDING INTRAOP CULTURES. NO OTHER CONCERNS AT PRESENT. PATIENT CONTINUES TO REPORT PAIN TO KNEE. PATIENT MAY REQUIRE GLUER IV ABX PENDING CULTURE REPORT. ABDOMINAL PAIN IMPROVED, LEUKOCYTOSIS IMPROVED - Past Medical Family Social History Past Med/Fam/Surg Hx: No changes since H&P Allergies: Allergies No Known Drug Allergies Allergy (Verified 07/12/21 20:48) - Review of Systems ROS: No change since H&P - Vital Signs and I&O's Vital Signs: Temperature 97.8 F Pulse Rate [Apical] 79 Pulse Rate 75 Respiratory Rate 18 Blood Pressure [Left Arm] 133/81 Blood Pressure 130/70 O2 Sat by Pulse Oximetry 99 Intake and Output: Intake & Output 07/13/21 07/14/21 07/15/21 07/16/21 23:59 23:59 23:59 23:59 Intake Total 595 / 595 5954 / 5954 9216 / 9216 3471 / 3471 Output Total 400 / 400 6010 / 6010 500 / 500 Balance 595 / 595 5554 / 5554 3206 / 3206 2971 / 2971 - Physical Exam Oriented: Normal Eyes: Normal Ear: Normal Nose: Normal Throat: Normal Respiratory: Normal Cardiovascular: Normal : Normal Auscultation: Bowel Sounds: Normal Tenderness: Normal Skin: Normal Musculoskeletal: Left, Knee, Swelling, Tender Psychiatric: Normal Mood Description: Calm Affect: Normal Speech Pattern: Clear - Laboratory and Diagnostics Result Diagrams: 07/16/21 04:40 07/16/21 15:07 Labs: 07/15/21 16:10 Knee - Left Wound Gram Stain - Final 07/15/21 16:10 Knee - Left Wound Culture - Preliminary 07/15/21 09:58 Knee - Left - Preliminary 07/15/21 09:58 Knee - Left Gram Stain - Final 07/13/21 18:10 Blood Blood Culture - Preliminary 07/13/21 17:56 Blood Blood Culture - Preliminary Laboratory WBC 11.1 X10^3/uL (3.6-10.0) H 07/16/21 04:40 RBC 4.28 X10^6/uL (4.7-6.0) L 07/16/21 04:40 Hgb 12.9 g/dL (13.5-18.0) L 07/16/21 04:40 Hct 37.7 % (42.0-54.0) L 07/16/21 04:40 MCV 88.2 fL (80.0-100.0) 07/16/21 04:40 MCH 30.1 pg (27.0-34.0) 07/16/21 04:40 MCHC 34.2 g/dL (33.0-35.0) 07/16/21 04:40 RDW 13.3 % (11.6-16.5) 07/16/21 04:40 Plt Count 195 X10^3/uL (150.0-450.0) 07/16/21 04:40 Plt Count Comment Adequate (ADEQUATE) 07/16/21 04:40 MPV 8.1 fL (7.4-11.0) 07/16/21 04:40 Neut % (Auto) 51.2 % (42.0-75.0) 07/16/21 04:40 Lymph % (Auto) 22.0 % (21.0-51.0) 07/16/21 04:40 [place] % (Auto) 24.2 % (0.0-13.0) H 07/16/21 04:40 Eos % (Auto) 1.8 % (0.9-2.9) 07/16/21 04:40 Baso % (Auto) 0.8 % (0.2-1.0) 07/16/21 04:40 Neut # (Auto) 5.7 x10^3/uL (2.2-4.8) H 07/16/21 04:40 Lymph # (Auto) 2.4 X10^3/uL (1.3-2.9) 07/16/21 04:40 [place] # (Auto) 2.7 x10^3/uL (0.3-0.8) H 07/16/21 04:40 Eos # (Auto) 0.2 x10^3/uL (0.0-0.2) 07/16/21 04:40 Baso # (Auto) 0.1 X10^3/uL (0.0-0.1) 07/16/21 04:40 Absolute Nucleated RBC 0.0 /100WBC 07/16/21 04:40 Total Counted 100 07/16/21 04:40 Neutrophils % (Manual) 49 % (39-76) 07/16/21 04:40 Band Neutrophils % 3 % (0-10) 07/15/21 04:38 Lymphocytes % (Manual) 29 % (13-43) 07/16/21 04:40 Monocytes % (Manual) 21 % (4-9) H 07/16/21 04:40 Eosinophils % (Manual) 1 % (0-6) 07/16/21 04:40 Atypical Lymphocytes Few 07/15/21 04:38 Plt Morphology Comment Normal (NORMAL) 07/16/21 04:40 RBC Morphology Normal (NORMAL) 07/16/21 04:40 ESR 52 MM/HOUR (0-15) H 07/15/21 04:38 Sodium 139 mmol/L (136-145) 07/16/21 04:40 Corrected Sodium TNP 07/16/21 04:40 Potassium 3.8 mmol/L (3.5-5.1) 07/16/21 15:07 Chloride 105 mmol/L (98-107) 07/16/21 04:40 Carbon Dioxide 25.7 mmol/L (21-32) 07/16/21 04:40 BUN 8 mg/dL (7-18) 07/16/21 04:40 Creatinine 0.79 mg/dL (0.70-1.30) 07/16/21 04:40 Est GFR (MDRD) Af Amer > 60 (>60) 07/16/21 04:40 Est GFR (MDRD) Non-Af > 60 (>60) 07/16/21 04:40 Glucose 106 mg/dL (65-99) H 07/16/21 04:40 Uric Acid 3.8 mg/dL (3.5-7.2) 07/14/21 05:44 Calcium 8.4 mg/dL (8.5-10.1) L 07/16/21 04:40 Corrected Calcium 9.6 mg/dL (8.5-10.1) 07/16/21 04:40 Magnesium 1.6 mg/dL (1.7-2.9) L 07/16/21 04:40 Total Bilirubin 0.40 mg/dL (0.2-1.0) 07/16/21 04:40 AST 31 Units/L (15-37) 07/16/21 04:40 ALT 79 Units/L (12-78) H 07/16/21 04:40 Alkaline Phosphatase 85 Units/L (46-116) 07/16/21 04:40 C-Reactive Protein 62.40 mg/L (0-3.0) H 07/15/21 04:38 Total Protein 6.3 g/dL (6.4-8.2) L 07/16/21 04:40 Albumin 2.5 g/dL (3.4-5.0) L 07/16/21 04:40 Globulin 3.8 g/dL (2.5-4.5) 07/16/21 04:40 Albumin/Globulin Ratio 0.7 Ratio (1.1-2.1) L 07/16/21 04:40 Fluid Source Synovial 07/15/21 09:58 Fluid Crystals None seen (None Seen) 07/15/21 09:58 Fluid Crystal Quantity None seen (None Seen) 07/15/21 09:58 Synovial WBC 27750 Cubic/mm (0-150) H 07/15/21 09:58 Vancomycin Trough 11.6 ug/mL (15-20) L 07/15/21 14:15 RPR Nonreactive (NONREACTIVE) 07/14/21 05:44 Ur C. trach DNA (PCR) Cancelled 07/14/21 05:44 SARS-CoV-2 (PCR) Negative (NEGATIVE) 07/13/21 19:50 Influenza Type A (PCR) Negative (NEGATIVE) 07/13/21 19:50 Influenza Type B (PCR) Negative (NEGATIVE) 07/13/21 19:50 U N.gonorrhoeae DNA PCR Cancelled 07/14/21 05:44 RSV (PCR) Negative (NEGATIVE) 07/13/21 19:50 - Plan (1) Acute pain of left knee Status: Acute (2) Septic arthritis of knee, left Status: Acute Qualifiers: Septic arthritis organism: due to unspecified organism Qualified Code(s): M00.9 - Pyogenic arthritis, unspecified Plan: admit, blood cultures on admission. knee xray in er, IV hydration. strict I&Os, pain control. IV ATBX, verify home medications. PENDING INTRAOP CULTURE REPORT. MAY REQUIRE IV ABX GLUER/OUTPATIENT (3) Abdominal pain Status: Acute Plan: IMPROVED, TOLERATING DIET (4) Leukocytosis Status: Acute Plan: RESOLVED
[2021-07-16] MEDS: AMBIEN PO PRN (20:33)
[2021-07-16] MEDS: MILK OF MAGNESIA PO SCH (20:34)
[2021-07-17] MEDS: MORPHINE SULFATE INJ 2 MG INJ IVP PRN ×3 (01:40→07:21)
[2021-07-17] MEDS: NS 1000 ML 1,000 ML IV SCH ×3 (05:44→20:42)
[2021-07-17] MEDS: VANCOMYCIN IV *PREMIX 1 G/200 ML BAG 1 G/200 ML PIGGYBACK IV SCH ×3 (05:44→21:08)
[2021-07-17 06:19] LABS: ALANINE AMINOTRANSFERASE 67 Units/L (12-78); ALBUMIN 2.7 g/dL (3.4-5.0); ALKALINE PHOSPHATASE 78 Units/L (46-116); ASPARTATE AMINO TRANSFERASE 25 Units/L (15-37); BLOOD UREA NITROGEN 6 mg/dL (7-18); CALCIUM 8.9 mg/dL (8.5-10.1); CHLORIDE 104 mmol/L (98-107); COR CA(FOR HYPOALB) 9.9 mg/dL (8.5-10.1); CREATININE 0.77 mg/dL (0.70-1.30); MAGNESIUM 1.8 mg/dL (1.7-2.9); SODIUM 139 mmol/L (136-145); TOTAL PROTEIN 6.7 g/dL (6.4-8.2); eGFR NON BLACK RACES > 60 (>60)
[2021-07-17 06:22] LABS: BASOPHILS # (AUTO) 0.1 X10^3/uL (0.0-0.1); BASOPHILS % (AUTO) 0.4 % (0.2-1.0); EOSINOPHILS # (AUTO) 0.3 x10^3/uL (0.0-0.2); EOSINOPHILS % (AUTO) 1.9 % (0.9-2.9); HEMATOCRIT 37.4 % (42.0-54.0); HEMOGLOBIN 12.8 g/dL (13.5-18.0); LYMPHOCYTES # (AUTO) 2.6 X10^3/uL (1.3-2.9); LYMPHOCYTES % (AUTO) 19.6 % (21.0-51.0); MEAN CORPUSCULAR HGB CONC 34.2 g/dL (33.0-35.0); MEAN CORPUSCULAR VOLUME 87.9 fL (80.0-100.0); MONOCYTES % (AUTO) 22.4 % (0.0-13.0); NEUTROPHILS # (AUTO) 7.4 x10^3/uL (2.2-4.8); NEUTROPHILS % (AUTO) 55.7 % (42.0-75.0); PLATELET COUNT 247 X10^3/uL (150.0-450.0); RED BLOOD COUNT 4.26 X10^6/uL (4.7-6.0); RED CELL DISTRIBUTION WIDTH 13.4 % (11.6-16.5); WHITE BLOOD COUNT 13.3 X10^3/uL (3.6-10.0)
[2021-07-17 07:06] LABS: PLATELET MORPHOLOGY COMMENT NORMAL (NORMAL)
[2021-07-17] MEDS: PROTONIX TAB 40 MG PO SCH (08:11)
[2021-07-17] MEDS: ZITHROMAX INJ 500 MG VIAL 500 MG in NS 250 ML IV 250 ML IV SCH (10:30)
[2021-07-17] MEDS: NORCO 7.5/325 MG TAB PO PRN ×2 (10:31→20:42)
[2021-07-17] MEDS: K-DUR TAB 20 MEQ PO PRN (10:31)
[2021-07-17] MEDS: MAGNESIUM SULFATE 1 GRAM/100 mL PREMIX 1 G/100 ML BAG IV PRN ×2 (12:33→14:05)
[2021-07-17 20:00] LABS: CREATININE 0.81 mg/dL (0.70-1.30); VANCOMYCIN,TROUGH 19.5 ug/mL (15-20)
[2021-07-17] MEDS: MILK OF MAGNESIA PO SCH (20:41)
[2021-07-17] MEDS: AMBIEN PO PRN (22:25)
[2021-07-18] MEDS: NS 1000 ML 1,000 ML IV SCH ×4 (00:30→21:36)
[2021-07-18] MEDS: NORCO 7.5/325 MG TAB PO PRN ×3 (04:12→18:00)
[2021-07-18] MEDS: VANCOMYCIN IV *PREMIX 1 G/200 ML BAG 1 G/200 ML PIGGYBACK IV SCH ×3 (05:28→21:36)
[2021-07-18 06:31] LABS: BASOPHILS # (AUTO) 0.1 X10^3/uL (0.0-0.1); BASOPHILS % (AUTO) 0.9 % (0.2-1.0); EOSINOPHILS # (AUTO) 0.2 x10^3/uL (0.0-0.2); EOSINOPHILS % (AUTO) 1.5 % (0.9-2.9); HEMATOCRIT 38.1 % (42.0-54.0); HEMOGLOBIN 12.9 g/dL (13.5-18.0); LYMPHOCYTES # (AUTO) 2.9 X10^3/uL (1.3-2.9); LYMPHOCYTES % (AUTO) 21.7 % (21.0-51.0); MEAN CORPUSCULAR HEMOGLOBIN 30.1 pg (27.0-34.0); MEAN CORPUSCULAR HGB CONC 33.8 g/dL (33.0-35.0); MEAN PLATELET VOLUME 8.2 fL (7.4-11.0); MONOCYTES # (AUTO) 1.8 x10^3/uL (0.3-0.8); MONOCYTES % (AUTO) 13.8 % (0.0-13.0); NEUTROPHILS # (AUTO) 8.3 x10^3/uL (2.2-4.8); NEUTROPHILS % (AUTO) 62.1 % (42.0-75.0); PLATELET COUNT 274 X10^3/uL (150.0-450.0); RED BLOOD COUNT 4.28 X10^6/uL (4.7-6.0); RED CELL DISTRIBUTION WIDTH 13.2 % (11.6-16.5); WHITE BLOOD COUNT 13.3 X10^3/uL (3.6-10.0)
[2021-07-18 06:48] LABS: ALANINE AMINOTRANSFERASE 73 Units/L (12-78); ALBUMIN 2.8 g/dL (3.4-5.0); ALKALINE PHOSPHATASE 77 Units/L (46-116); ASPARTATE AMINO TRANSFERASE 32 Units/L (15-37); BLOOD UREA NITROGEN 11 mg/dL (7-18); CALCIUM 8.9 mg/dL (8.5-10.1); CARBON DIOXIDE 27.3 mmol/L (21-32); CHLORIDE 102 mmol/L (98-107); COR CA(FOR HYPOALB) 9.9 mg/dL (8.5-10.1); CREATININE 0.81 mg/dL (0.70-1.30); SODIUM 139 mmol/L (136-145); eGFR NON BLACK RACES > 60 (>60)
[2021-07-18] MEDS: PROTONIX TAB 40 MG PO SCH (08:16)
[2021-07-18] MEDS: MORPHINE SULFATE INJ 2 MG INJ IVP PRN (08:45)
[2021-07-18] MEDS: ZITHROMAX INJ 500 MG VIAL 500 MG in NS 250 ML IV 250 ML IV SCH (10:40)
[2021-07-18] MEDS: K-DUR TAB 20 MEQ PO PRN (10:46)
[2021-07-18 21:25] LABS: CREATININE 0.99 mg/dL (0.70-1.30); VANCOMYCIN,TROUGH 12.6 ug/mL (15-20)
[2021-07-18] MEDS: MILK OF MAGNESIA PO SCH (21:35)
[2021-07-19] MEDS: AMBIEN PO PRN (00:13)
[2021-07-19] MEDS: NORCO 7.5/325 MG TAB PO PRN ×2 (00:13→06:59)
[2021-07-19] MEDS: VANCOMYCIN IV *PREMIX 1 G/200 ML BAG 1 G/200 ML PIGGYBACK IV SCH (04:59)
[2021-07-19] MEDS: NS 1000 ML 1,000 ML IV SCH ×2 (04:59→13:09)
[2021-07-19] MEDS: MORPHINE SULFATE INJ 2 MG INJ IVP PRN (05:09)
[2021-07-19 06:11] LABS: BASOPHILS # (AUTO) 0.1 X10^3/uL (0.0-0.1); BASOPHILS % (AUTO) 0.8 % (0.2-1.0); EOSINOPHILS # (AUTO) 0.1 x10^3/uL (0.0-0.2); EOSINOPHILS % (AUTO) 1.2 % (0.9-2.9); HEMATOCRIT 39.1 % (42.0-54.0); HEMOGLOBIN 13.3 g/dL (13.5-18.0); LYMPHOCYTES # (AUTO) 2.9 X10^3/uL (1.3-2.9); LYMPHOCYTES % (AUTO) 25.8 % (21.0-51.0); MEAN CORPUSCULAR HGB CONC 34.1 g/dL (33.0-35.0); MEAN CORPUSCULAR VOLUME 87.9 fL (80.0-100.0); MEAN PLATELET VOLUME 7.5 fL (7.4-11.0); MONOCYTES # (AUTO) 1.3 x10^3/uL (0.3-0.8); MONOCYTES % (AUTO) 11.7 % (0.0-13.0); NEUTROPHILS # (AUTO) 6.7 x10^3/uL (2.2-4.8); NEUTROPHILS % (AUTO) 60.5 % (42.0-75.0); PLATELET COUNT 342 X10^3/uL (150.0-450.0); RED BLOOD COUNT 4.45 X10^6/uL (4.7-6.0); RED CELL DISTRIBUTION WIDTH 13.4 % (11.6-16.5); WHITE BLOOD COUNT 11.2 X10^3/uL (3.6-10.0)
[2021-07-19 06:17] LABS: ALANINE AMINOTRANSFERASE 72 Units/L (12-78); ALBUMIN 2.9 g/dL (3.4-5.0); ALKALINE PHOSPHATASE 77 Units/L (46-116); ASPARTATE AMINO TRANSFERASE 30 Units/L (15-37); BLOOD UREA NITROGEN 14 mg/dL (7-18); CALCIUM 9.2 mg/dL (8.5-10.1); CARBON DIOXIDE 26.8 mmol/L (21-32); CHLORIDE 101 mmol/L (98-107); COR CA(FOR HYPOALB) 10.1 mg/dL (8.5-10.1); CREATININE 0.76 mg/dL (0.70-1.30); SODIUM 138 mmol/L (136-145); TOTAL PROTEIN 7.5 g/dL (6.4-8.2); eGFR NON BLACK RACES > 60 (>60)
[2021-07-19 06:42] LABS: CRYPTOSPORIDIUM PARVUM ANTIGEN NEGATIVE (NEGATIVE); GIARDIA LAMBLIA ANTIGEN NEGATIVE (NEGATIVE)
[2021-07-19] MEDS: PROTONIX TAB 40 MG PO SCH (08:53)
--- NOTE | 2021-07-19 09:37 | PCM.PROG ---
Progress Note - Progress Note for Day of Date of Exam: 07/17/21 - Subjective Subjective: PATIENT IS A 25 YEAR OLD AAM WHO WAS ADMITTED DUE TO GASTROENTERITIS AND SEPTIC KNEE (LEFT). PATIENT IS S/P I&D. PENDING INTRAOP CULTURES; day 1 no growth. NO OTHER CONCERNS AT PRESENT. PATIENT CONTINUES TO REPORT PAIN TO KNEE. PATIENT MAY REQUIRE HALFWAY IV ABX PENDING CULTURE REPORT. ABDOMINAL PAIN IMPROVED, LEUKOCYTOSIS IMPROVED - Past Medical Family Social History Past Med/Fam/Surg Hx: No changes since H&P Allergies: Allergies No Known Drug Allergies Allergy (Verified 07/12/21 20:48) - Review of Systems ROS: No change since H&P - Vital Signs and I&O's Vital Signs: Temperature 98.5 F Pulse Rate [Apical] 92 Pulse Rate 75 Respiratory Rate 20 Blood Pressure [Left Arm] 124/73 Blood Pressure 130/70 O2 Sat by Pulse Oximetry 97 Intake and Output: Intake & Output 07/16/21 07/17/21 07/18/21 07/19/21 23:59 23:59 23:59 23:59 Intake Total 4490 / 4490 6042 / 6042 3700 / 3700 4024 / 4024 Output Total 500 / 500 2700 / 2700 800 / 800 800 / 800 Balance 3990 / 3990 3342 / 3342 2900 / 2900 3224 / 3224 - Physical Exam Oriented: Normal Eyes: Normal Ear: Normal Nose: Normal Throat: Normal Respiratory: Normal Cardiovascular: Normal : Normal Auscultation: Bowel Sounds: Normal Tenderness: Normal Skin: Normal Musculoskeletal: Left, Knee, Swelling, Tender Psychiatric: Normal Mood Description: Calm Affect: Normal Speech Pattern: Clear - Laboratory and Diagnostics Result Diagrams: 07/19/21 05:40 07/19/21 05:40 Labs: 07/15/21 09:58 Knee - Left - Final 07/19/21 05:40 Stool - Final 07/15/21 16:10 Knee - Left Wound Gram Stain - Final 07/15/21 16:10 Knee - Left Wound Culture - Final 07/15/21 09:58 Knee - Left Gram Stain - Final 07/13/21 18:10 Blood Blood Culture - Preliminary 07/13/21 17:56 Blood Blood Culture - Preliminary Laboratory WBC 11.2 X10^3/uL (3.6-10.0) H 07/19/21 05:40 RBC 4.45 X10^6/uL (4.7-6.0) L 07/19/21 05:40 Hgb 13.3 g/dL (13.5-18.0) L 07/19/21 05:40 Hct 39.1 % (42.0-54.0) L 07/19/21 05:40 MCV 87.9 fL (80.0-100.0) 07/19/21 05:40 MCH 30.0 pg (27.0-34.0) 07/19/21 05:40 MCHC 34.1 g/dL (33.0-35.0) 07/19/21 05:40 RDW 13.4 % (11.6-16.5) 07/19/21 05:40 Plt Count 342 X10^3/uL (150.0-450.0) 07/19/21 05:40 Plt Count Comment Adequate (ADEQUATE) 07/17/21 05:30 MPV 7.5 fL (7.4-11.0) 07/19/21 05:40 Neut % (Auto) 60.5 % (42.0-75.0) 07/19/21 05:40 Lymph % (Auto) 25.8 % (21.0-51.0) 07/19/21 05:40 [place] % (Auto) 11.7 % (0.0-13.0) 07/19/21 05:40 Eos % (Auto) 1.2 % (0.9-2.9) 07/19/21 05:40 Baso % (Auto) 0.8 % (0.2-1.0) 07/19/21 05:40 Neut # (Auto) 6.7 x10^3/uL (2.2-4.8) H 07/19/21 05:40 Lymph # (Auto) 2.9 X10^3/uL (1.3-2.9) 07/19/21 05:40 [place] # (Auto) 1.3 x10^3/uL (0.3-0.8) H 07/19/21 05:40 Eos # (Auto) 0.1 x10^3/uL (0.0-0.2) 07/19/21 05:40 Baso # (Auto) 0.1 X10^3/uL (0.0-0.1) 07/19/21 05:40 Absolute Nucleated RBC 0.1 /100WBC 07/19/21 05:40 Total Counted 100 07/17/21 05:30 Neutrophils % (Manual) 48 % (39-76) 07/17/21 05:30 Band Neutrophils % 3 % (0-10) 07/15/21 04:38 Lymphocytes % (Manual) 38 % (13-43) 07/17/21 05:30 Monocytes % (Manual) 11 % (4-9) H 07/17/21 05:30 Eosinophils % (Manual) 3 % (0-6) 07/17/21 05:30 Atypical Lymphocytes Few 07/17/21 05:30 Plt Morphology Comment Normal (NORMAL) 07/17/21 05:30 RBC Morphology Normal (NORMAL) 07/17/21 05:30 ESR 52 MM/HOUR (0-15) H 07/15/21 04:38 Sodium 138 mmol/L (136-145) 07/19/21 05:40 Corrected Sodium TNP 07/19/21 05:40 Potassium 3.9 mmol/L (3.5-5.1) 07/19/21 05:40 Chloride 101 mmol/L (98-107) 07/19/21 05:40 Carbon Dioxide 26.8 mmol/L (21-32) 07/19/21 05:40 BUN 14 mg/dL (7-18) 07/19/21 05:40 Creatinine 0.76 mg/dL (0.70-1.30) 07/19/21 05:40 Est GFR (MDRD) Af Amer > 60 (>60) 07/19/21 05:40 Est GFR (MDRD) Non-Af > 60 (>60) 07/19/21 05:40 Glucose 83 mg/dL (65-99) 07/19/21 05:40 Uric Acid 3.8 mg/dL (3.5-7.2) 07/14/21 05:44 Calcium 9.2 mg/dL (8.5-10.1) 07/19/21 05:40 Corrected Calcium 10.1 mg/dL (8.5-10.1) 07/19/21 05:40 Magnesium 1.8 mg/dL (1.7-2.9) 07/17/21 05:30 Total Bilirubin 0.40 mg/dL (0.2-1.0) 07/19/21 05:40 AST 30 Units/L (15-37) 07/19/21 05:40 ALT 72 Units/L (12-78) 07/19/21 05:40 Alkaline Phosphatase 77 Units/L (46-116) 07/19/21 05:40 C-Reactive Protein 62.40 mg/L (0-3.0) H 07/15/21 04:38 Total Protein 7.5 g/dL (6.4-8.2) 07/19/21 05:40 Albumin 2.9 g/dL (3.4-5.0) L 07/19/21 05:40 Globulin 4.6 g/dL (2.5-4.5) H 07/19/21 05:40 Albumin/Globulin Ratio 0.6 Ratio (1.1-2.1) L 07/19/21 05:40 Fluid Source Synovial 07/15/21 09:58 Fluid Crystals None seen (None Seen) 07/15/21 09:58 Fluid Crystal Quantity None seen (None Seen) 07/15/21 09:58 Synovial WBC 15520 Cubic/mm (0-150) H 07/15/21 09:58 Stool Description 40g formed brown 07/19/21 05:40 Stool Description 40g formed brown 07/19/21 05:40 Stl Occult Blood (IFOB) Negative (NEGATIVE) 07/19/21 05:40 Stool for White Cells Negative (NEGATIVE) 07/19/21 05:40 Stl C. diff Tox B Gene Negative (NEGATIVE) 07/19/21 05:40 Stl C. diff [id number] Presumptive negative (NEGATIVE) 07/19/21 05:40 Vancomycin Trough 12.6 ug/mL (15-20) L 07/18/21 20:51 RPR Nonreactive (NONREACTIVE) 07/14/21 05:44 Ur C. trach DNA (PCR) Cancelled 07/14/21 05:44 SARS-CoV-2 (PCR) Negative (NEGATIVE) 07/13/21 19:50 Cryptosporid parvum Ag Negative (NEGATIVE) 07/19/21 05:40 Giardia lamblia Ag Negative (NEGATIVE) 07/19/21 05:40 Influenza Type A (PCR) Negative (NEGATIVE) 07/13/21 19:50 Influenza Type B (PCR) Negative (NEGATIVE) 07/13/21 19:50 U N.gonorrhoeae DNA PCR Cancelled 07/14/21 05:44 RSV (PCR) Negative (NEGATIVE) 07/13/21 19:50 - Plan (1) Acute pain of left knee Status: Acute (2) Septic arthritis of knee, left Status: Acute Qualifiers: Septic arthritis organism: due to unspecified organism Qualified Code(s): M00.9 - Pyogenic arthritis, unspecified Plan: admit, blood cultures on admission. knee xray in er, IV hydration. strict I&Os, pain control. IV ATBX, verify home medications. PENDING INTRAOP CULTURE REPORT. 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
--- NOTE | 2021-07-19 09:40 | PCM.PROG ---
Progress Note - Progress Note for Day of Date of Exam: 07/18/21 - Subjective Subjective: PATIENT IS A 25 YEAR OLD AAM WHO WAS ADMITTED DUE TO GASTROENTERITIS AND SEPTIC KNEE (LEFT). PATIENT IS S/P I&D. PENDING INTRAOP CULTURES; day 2 no growth. 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 NO OTHER CONCERNS AT PRESENT. PATIENT CONTINUES TO REPORT PAIN TO KNEE. Plan for dc in am on levaquin po x 2 weeks. ABDOMINAL PAIN IMPROVED, LEUKOCYTOSIS IMPROVED - Past Medical Family Social History Past Med/Fam/Surg Hx: No changes since H&P Allergies: Allergies No Known Drug Allergies Allergy (Verified 07/12/21 20:48) - Review of Systems ROS: No change since H&P - Vital Signs and I&O's Vital Signs: Temperature 98.5 F Pulse Rate [Apical] 92 Pulse Rate 75 Respiratory Rate 20 Blood Pressure [Left Arm] 124/73 Blood Pressure 130/70 O2 Sat by Pulse Oximetry 97 Intake and Output: Intake & Output 07/16/21 07/17/21 07/18/21 07/19/21 23:59 23:59 23:59 23:59 Intake Total 4490 / 4490 6042 / 6042 3700 / 3700 4024 / 4024 Output Total 500 / 500 2700 / 2700 800 / 800 800 / 800 Balance 3990 / 3990 3342 / 3342 2900 / 2900 3224 / 3224 - Physical Exam Oriented: Normal Eyes: Normal Ear: Normal Nose: Normal Throat: Normal Respiratory: Normal Cardiovascular: Normal : Normal Auscultation: Bowel Sounds: Normal Tenderness: Normal Skin: Normal Musculoskeletal: Left, Knee, Swelling, Tender Psychiatric: Normal Mood Description: Calm Affect: Normal Speech Pattern: Clear - Laboratory and Diagnostics Result Diagrams: 07/19/21 05:40 07/19/21 05:40 Labs: 07/15/21 09:58 Knee - Left - Final 07/19/21 05:40 Stool - Final 07/15/21 16:10 Knee - Left Wound Gram Stain - Final 07/15/21 16:10 Knee - Left Wound Culture - Final 07/15/21 09:58 Knee - Left Gram Stain - Final 07/13/21 18:10 Blood Blood Culture - Preliminary 07/13/21 17:56 Blood Blood Culture - Preliminary Laboratory WBC 11.2 X10^3/uL (3.6-10.0) H 07/19/21 05:40 RBC 4.45 X10^6/uL (4.7-6.0) L 07/19/21 05:40 Hgb 13.3 g/dL (13.5-18.0) L 07/19/21 05:40 Hct 39.1 % (42.0-54.0) L 07/19/21 05:40 MCV 87.9 fL (80.0-100.0) 07/19/21 05:40 MCH 30.0 pg (27.0-34.0) 07/19/21 05:40 MCHC 34.1 g/dL (33.0-35.0) 07/19/21 05:40 RDW 13.4 % (11.6-16.5) 07/19/21 05:40 Plt Count 342 X10^3/uL (150.0-450.0) 07/19/21 05:40 Plt Count Comment Adequate (ADEQUATE) 07/17/21 05:30 MPV 7.5 fL (7.4-11.0) 07/19/21 05:40 Neut % (Auto) 60.5 % (42.0-75.0) 07/19/21 05:40 Lymph % (Auto) 25.8 % (21.0-51.0) 07/19/21 05:40 [place] % (Auto) 11.7 % (0.0-13.0) 07/19/21 05:40 Eos % (Auto) 1.2 % (0.9-2.9) 07/19/21 05:40 Baso % (Auto) 0.8 % (0.2-1.0) 07/19/21 05:40 Neut # (Auto) 6.7 x10^3/uL (2.2-4.8) H 07/19/21 05:40 Lymph # (Auto) 2.9 X10^3/uL (1.3-2.9) 07/19/21 05:40 [place] # (Auto) 1.3 x10^3/uL (0.3-0.8) H 07/19/21 05:40 Eos # (Auto) 0.1 x10^3/uL (0.0-0.2) 07/19/21 05:40 Baso # (Auto) 0.1 X10^3/uL (0.0-0.1) 07/19/21 05:40 Absolute Nucleated RBC 0.1 /100WBC 07/19/21 05:40 Total Counted 100 07/17/21 05:30 Neutrophils % (Manual) 48 % (39-76) 07/17/21 05:30 Band Neutrophils % 3 % (0-10) 07/15/21 04:38 Lymphocytes % (Manual) 38 % (13-43) 07/17/21 05:30 Monocytes % (Manual) 11 % (4-9) H 07/17/21 05:30 Eosinophils % (Manual) 3 % (0-6) 07/17/21 05:30 Atypical Lymphocytes Few 07/17/21 05:30 Plt Morphology Comment Normal (NORMAL) 07/17/21 05:30 RBC Morphology Normal (NORMAL) 07/17/21 05:30 ESR 52 MM/HOUR (0-15) H 07/15/21 04:38 Sodium 138 mmol/L (136-145) 07/19/21 05:40 Corrected Sodium TNP 07/19/21 05:40 Potassium 3.9 mmol/L (3.5-5.1) 07/19/21 05:40 Chloride 101 mmol/L (98-107) 07/19/21 05:40 Carbon Dioxide 26.8 mmol/L (21-32) 07/19/21 05:40 BUN 14 mg/dL (7-18) 07/19/21 05:40 Creatinine 0.76 mg/dL (0.70-1.30) 07/19/21 05:40 Est GFR (MDRD) Af Amer > 60 (>60) 07/19/21 05:40 Est GFR (MDRD) Non-Af > 60 (>60) 07/19/21 05:40 Glucose 83 mg/dL (65-99) 07/19/21 05:40 Uric Acid 3.8 mg/dL (3.5-7.2) 07/14/21 05:44 Calcium 9.2 mg/dL (8.5-10.1) 07/19/21 05:40 Corrected Calcium 10.1 mg/dL (8.5-10.1) 07/19/21 05:40 Magnesium 1.8 mg/dL (1.7-2.9) 07/17/21 05:30 Total Bilirubin 0.40 mg/dL (0.2-1.0) 07/19/21 05:40 AST 30 Units/L (15-37) 07/19/21 05:40 ALT 72 Units/L (12-78) 07/19/21 05:40 Alkaline Phosphatase 77 Units/L (46-116) 07/19/21 05:40 C-Reactive Protein 62.40 mg/L (0-3.0) H 07/15/21 04:38 Total Protein 7.5 g/dL (6.4-8.2) 07/19/21 05:40 Albumin 2.9 g/dL (3.4-5.0) L 07/19/21 05:40 Globulin 4.6 g/dL (2.5-4.5) H 07/19/21 05:40 Albumin/Globulin Ratio 0.6 Ratio (1.1-2.1) L 07/19/21 05:40 Fluid Source Synovial 07/15/21 09:58 Fluid Crystals None seen (None Seen) 07/15/21 09:58 Fluid Crystal Quantity None seen (None Seen) 07/15/21 09:58 Synovial WBC 48391 Cubic/mm (0-150) H 07/15/21 09:58 Stool Description 40g formed brown 07/19/21 05:40 Stool Description 40g formed brown 07/19/21 05:40 Stl Occult Blood (IFOB) Negative (NEGATIVE) 07/19/21 05:40 Stool for White Cells Negative (NEGATIVE) 07/19/21 05:40 Stl C. diff Tox B Gene Negative (NEGATIVE) 07/19/21 05:40 Stl C. diff [id number] Presumptive negative (NEGATIVE) 07/19/21 05:40 Vancomycin Trough 12.6 ug/mL (15-20) L 07/18/21 20:51 RPR Nonreactive (NONREACTIVE) 07/14/21 05:44 Ur C. trach DNA (PCR) Cancelled 07/14/21 05:44 SARS-CoV-2 (PCR) Negative (NEGATIVE) 07/13/21 19:50 Cryptosporid parvum Ag Negative (NEGATIVE) 07/19/21 05:40 Giardia lamblia Ag Negative (NEGATIVE) 07/19/21 05:40 Influenza Type A (PCR) Negative (NEGATIVE) 07/13/21 19:50 Influenza Type B (PCR) Negative (NEGATIVE) 07/13/21 19:50 U N.gonorrhoeae DNA PCR Cancelled 07/14/21 05:44 RSV (PCR) Negative (NEGATIVE) 07/13/21 19:50 - Plan (1) Reactive arthritis Status: Acute (2) Acute pain of left knee Status: Acute (3) Septic arthritis of knee, left Status: Acute Qualifiers: Septic arthritis organism: due to unspecified organism Qualified Code(s): M00.9 - Pyogenic arthritis, unspecified Plan: admit, blood cultures on admission. knee xray in er, IV hydration. strict I&Os, pain control. IV ATBX, verify home medications. PENDING INTRAOP CULTURE REPORT. MAY REQUIRE IV ABX JAIL/OUTPATIENT (4) Abdominal pain Status: Acute Plan: IMPROVED, TOLERATING DIET (5) Leukocytosis Status: Acute Plan: RESOLVED
[2021-07-19] MEDS: ZITHROMAX INJ 500 MG VIAL 500 MG in NS 250 ML IV 250 ML IV SCH (10:30)
[2021-07-19 12:12] VITALS: BP 142/84
== END 2021-07-19 13:09 | disposition home or self-care (01) | DRG 392 ==
LOC: ER 17:15 → MED/SURG 20:43
PROVIDERS: ADMIT Internal Medicine; ATTEND Internal Medicine
PROC: [UNRECOGNIZED PROCEDURE] (2021-07-15 12:15)
DX: Z87.438 Personal history of other diseases of male genital organs; R07.89 Other chest pain; M25.562 Pain in left knee; R11.2 Nausea with vomiting, unspecified; Z20.822 Contact with and (suspected) exposure to COVID-19; K52.89 Other specified noninfective gastroenteritis and colitis; D64.89 Other specified anemias; M00.9 Pyogenic arthritis, unspecified; E86.0 Dehydration